=== PATIENT | female | born 1960 | race Caucasian/White ===

== ENCOUNTER → 2016-09-20 | Outpatient (CLI) | payer OTHER ==
[~2016-09-20] MED LIST: AMLODIPINE BESYL5 MG PO
--- NOTE | ~2016-09-20 | US85 ---
[facility] A Service of [facility] & [facility] [place] RADIOLOGY TEXT RESULTS PATIENT: DELLA NOEL LOCATION: CNIV : 56 UNIT #: [id number] AGE: [address]: Tyler Everett MD SEX: F ORDER DR: [id number] [facility] [address] [place], [place] [address] [id number] O MR#: [id number] #: [id number] NAME: DELLA NOEL : 1960 SEX: F STUDY DATE/TIME: 09/20/2016 15:45 UNIT: CN[facility] ROOM: STUDY DESCRIPTION: [facility] [place] [facility] Attending Physician: Tyler Everett M.D. Referring Physician: Tyler Everett M.D. Ordering Physician: Tyler Everett M.D. Primary Care Physician: Tyler Everett M.D. MEDICAL IMAGING REPORT This report is preliminary unless electronic signature is present EXAM Right lower extremity venous duplex 09/20/2016 HISTORY Right lower extremity edema for 3 weeks. Evaluate for deep vein thrombosis. TECHNIQUE Venous ultrasound examination of the right lower extremity was performed using grayscale, spectral Doppler and color flow Doppler imaging. FINDINGS The examination is negative. There is no evidence of right lower extremity deep venous thrombus from the groin to the lower calf. Visualized greater saphenous vein is also patent. IMPRESSION Negative examination. No evidence of right lower extremity deep venous thrombosis. Dictated by... Gilmar Pedersen M.D. THIS IS AN ELECTRONICALLY VERIFIED REPORT Gilmar Pedersen M.D. at 09/23/2016 12:47 PM KEYON/karoline TD: 09/20/2016 23:17 JOB #: [id number] MEDICAL IMAGING REPORT Page 1 of 1 COPY
== END | disposition home or self-care (01) ==
LOC: CNIV 15:20
DX: M79.89 Other specified soft tissue disorders (principal)
CPT/HCPCS: 93971